=== PATIENT | female | born 1995 ===

== ENCOUNTER 2017-11-07 18:02 | Emergency (ER) | payer BC ==
[2017-11-07 18:56] VITALS: BP 109/74
--- NOTE | 2017-11-07 19:31 | UC ---
Complaint Female HPI - HPI Summary HPI Summary: c/o burning urination and frequency for the past 2 days. Denies fever, chills, or flank pain. NKDADemetria HAQD was July 2017, on nexplanon. She denies any PMH or any triggers for symptoms. She has not had a UTI for several years. - History Of Current Complaint Chief Complaint: UCGU Stated Complaint: FREQUENT URINATION Time Seen by Provider: 11/07/17 19:19 Hx Obtained From: Patient Hx Last Menstrual Period: 09/07/14 ?: No Onset/Duration: Sudden Onset, Lasting Days Timing: Intermittent, Lasting Minutes Severity Initially: Mild Severity Currently: Mild Pain Intensity: 0 Character: Burning Aggravating Factor(s): Urination Alleviating Factor(s): Nothing Associated Signs And Symptoms: Positive: Negative - Risk Factors Ectopic Risk Factor: Negative Ovarian Torsion Risk Factor: Negative - Allergies/Home Medications Allergies/Adverse Reactions: Allergies Allergy/AdvReac Type Severity Reaction Status Date / Time No Known Allergies Allergy Verified 11/07/17 18:57 Home Medications: Home Medications Etonogestrel [Nexplanon] 68 mg .SEE ORDER 11/07/17 [History] PMH/Surg Hx/FS Hx/Imm Hx Previously Healthy: Yes - Surgical History Surgical History: Yes Surgery Procedure, Year, and Place: appy - Family History Known Family History: Positive: Hypertension - Social History Alcohol Use: Weekly Substance Use Type: Marijuana Smoking Status (MU): Never Smoked Tobacco - Immunization History Most Recent Influenza Vaccination: 2013 Review of Systems Constitutional: Negative Genitourinary: Dysuria, Frequency All Other Systems Reviewed And Are Negative: Yes Physical Exam Triage Information Reviewed: Yes Appearance: Well-Appearing, No Pain Distress, Well-Nourished Vital Signs: Initial Vital Signs Temp 98.0 F 11/07/17 18:53 Pulse 62 11/07/17 18:53 Resp 16 11/07/17 18:53 BP 109/74 11/07/17 18:53 Pulse Ox 100 11/07/17 18:53 Vital Signs Reviewed: Yes Eyes: Positive: Conjunctiva Clear ENT: Positive: Hearing grossly normal Neck: Positive: Supple, Nontender Respiratory: Positive: Chest non-tender, Lungs clear, Normal breath sounds, No respiratory distress Cardiovascular: Positive: RRR, No Murmur, Pulses Normal, Brisk Capillary Refill Abdomen Description: Positive: Nontender, No Organomegaly, Soft Bowel Sounds: Positive: Present Complaint Female Dx - Course Course Of Treatment: UA positive for blood and leucocytes, patient to start on macrobid as prescribed, oral fluids, probiotics. f/u with PCP - Differential Dx/Diagnosis Provider Diagnoses: UTI Discharge - Sign-Out/Discharge Documenting (check all that apply): Patient Departure - Discharge Plan Condition: Good Disposition: HOME Prescriptions: Nitrofurantoin Monohyd/M-Cryst [Macrobid 100 mg Capsule] 100 mg PO BID 7 Days # 14 cap Patient Education Materials: Ciprofloxacin (Into the eye), Nitrofurantoin Macrocrystals (By mouth), Urinary Tract Infection in Women (ED) Referrals: Elton Delong MD [Primary Care Provider] - - Billing Disposition and Condition Condition: GOOD Disposition: Home
[2017-11-07] MEDS ORDERED: Nitrofurantoin Macrocrystals* 50 MG CAP PO ONE (19:36)
--- NOTE | 2017-11-09 18:54 | PN ---
Progress Note - Progress Note Date of Service: 11/09/17 Note: patient urine culture grew Klebsiella pneumonia 25-50,[address] Patient [address] on Macrobid. Will wait for final cultures for sensitivity.
--- NOTE | 2017-11-10 17:30 | UC ---
- Progress Note Progress Note: Urine final with klebsiella and group b strep. She was placed on Macrobid and sensitivities show "intermediate" sensitivity to macrobid. Therefore please stop macrobid and start Keflex which has good coverage for both and is sensitive according to culture. rx sent Discharge - Sign-Out/Discharge Documenting (check all that apply): Post-Discharge Follow Up All imaging exams completed and their final reports reviewed: No Studies - Discharge Plan Condition: Good Disposition: HOME Prescriptions: Cephalexin CAP* [Keflex CAP*] 500 mg PO BID #10 cap Patient Education Materials: Nitrofurantoin Macrocrystals (By mouth), Urinary Tract Infection in Women (ED) Referrals: Elton Delong MD [Primary Care Provider] - - Billing Disposition and Condition Condition: GOOD Disposition: Home
== END 2017-11-07 19:44 | disposition home or self-care (01) ==
LOC: UCEAST 18:02
DX: N39.0 Urinary tract infection, site not specified (principal)
CPT/HCPCS: 81003; 87077; 87086; 87186; 99212; A9270-GY; G0463

== ENCOUNTER 2018-06-16 15:49 | Emergency (ER) | payer BC ==
[2018-06-16 17:28] VITALS: BP 108/67
--- NOTE | 2018-06-16 18:01 | UC ---
Throat Pain/Nasal Nathaniel HPI - HPI Summary HPI Summary: 23-year-old female presents with onset of sore throat and 06/04/2018. States a few days later she started developing nasal congestion, runny nose, and occasional nonproductive cough which has progressively worsened especially over the last 3-4 days. Denies fever, chills, ear pain, dysphasia, chest pain, shortness of breath, abdominal pain, nausea, vomiting, or diarrhea. - History of Current Complaint Chief Complaint: UCRespiratory Stated Complaint: EYE COMPLAINT Time Seen by Provider: 06/16/18 17:32 Hx Obtained From: Patient Hx Last Menstrual Period: nexplanon Pain Intensity: 2 - Allergies/Home Medications Allergies/Adverse Reactions: Allergies Allergy/AdvReac Type Severity Reaction Status Date / Time No Known Allergies Allergy Verified 11/07/17 18:57 Home Medications: Home Medications Cbd Oil 1 drop PO BID 06/16/18 [History] PMH/Surg Hx/FS Hx/Imm Hx Previously Healthy: Yes - Denies significant PMH - Surgical History Surgical History: Yes Surgery Procedure, Year, and Place: app - Family History Known Family History: Positive: Hypertension - Social History Occupation: Student Lives: Dormitory/Roommates Alcohol Use: Weekly Substance Use Type: Marijuana Smoking Status (MU): Never Smoked Tobacco - Immunization History Most Recent Influenza Vaccination: 2013 Review of Systems All Other Systems Reviewed And Are Negative: Yes Constitutional: Negative: Fever, Chills Skin: Negative: Rash Eyes: Negative: Drainage, Eye Redness ENT: Positive: Sore Throat, Nasal Discharge, Sinus Congestion, Sinus Pain/ Tenderness. Negative: Ear Ache Respiratory: Positive: Cough. Negative: Shortness Of Breath Cardiovascular: Negative: Palpitations, Chest Pain Gastrointestinal: Negative: Abdominal Pain, Vomiting, Diarrhea, Nausea Genitourinary: Positive: Negative Neurological: Positive: Negative Psychological: Positive: Negative Is Patient Immunocompromised?: No Physical Exam - Summary Physical Exam Summary: GENERAL APPEARANCE: Well developed, well nourished, alert and cooperative, and appears to be in no acute distress. EYES: Conjunctiva clear. No drainage. PERRL, EOM intact. Vision is grossly intact. EARS: External auditory canals and tympanic membranes clear, hearing grossly intact. NOSE: Moderate-severe nasal congestion with mucosal erythema and edema. No nasal discharge. THROAT: Pharyngeal erythema. No tonsilar inflammation, swelling, exudate, or lesions. Uvula midline. Oral cavity normal. Teeth and gingiva in good general condition. NECK: Neck supple, non-tender without lymphadenopathy. CARDIAC: Normal S1 and S2. No S3, S4 or murmurs. Rhythm is regular. There is no peripheral edema, cyanosis or pallor. Extremities are warm and well perfused. Capillary refill is less than 2 seconds. Peripheral pulses intact. LUNGS: Clear to auscultation without rales, rhonchi, wheezing or diminished breath sounds. Loose non-productive cough. ABDOMEN: Positive bowel sounds. Soft, nondistended, nontender. No guarding or rebound. No masses or hepatosplenomegally. MUSKULOSKELETAL: ROM intact to all extremities. No joint erythema or tenderness. Normal muscular development. Normal gait. SKIN: Skin normal color, texture and turgor with no lesions or eruptions. Triage Information Reviewed: Yes Vital Signs: Initial Vital Signs Temp 99.4 F 06/16/18 17:24 Pulse 86 06/16/18 17:24 Resp 18 06/16/18 17:24 BP 108/67 06/16/18 17:24 Pulse Ox 100 06/16/18 17:24 Vital Signs Reviewed: Yes Throat Pain/Nasal Course/Dx - Course Course Of Treatment: 23-year-old female presents with onset of sore throat and 06/04/2018. States a few days later she started developing nasal congestion, runny nose, and occasional nonproductive cough which has progressively worsened especially over the last 3-4 days. Denies fever, chills, ear pain, dysphasia, chest pain, shortness of breath, abdominal pain, nausea, vomiting, or diarrhea. Afebrile. Vital signs stable. Exam is remarkable for moderate to severe nasal congestion with mucosal erythema and edema, pharyngeal erythema without tonsillar swelling or exudate, and a loose nonproductive cough. Considering the duration and progressive worsening of her symptoms I will treat her for a URI with secondary bacterial infection with amoxicillin 500 mg twice a day 10 days as well as symptomatic care. She is to return here or follow up with her primary care provider in 5 days if symptoms are not improving. Anticipatory guidance and warning symptoms reviewed with the patient. Verbalizes understanding and agrees with plan of care. - Differential Dx/Diagnosis Provider Diagnosis: URI with cough and congestion Discharge - Sign-Out/Discharge Documenting (check all that apply): Patient Departure All imaging exams completed and their final reports reviewed: No Studies - Discharge Plan Condition: Stable Disposition: HOME Prescriptions: Amoxicillin PO (*) [Amoxicillin 500 MG CAP*] 500 mg PO Q12H #20 cap Patient Education Materials: Upper Respiratory Infection (ED) Referrals: Elton Delong MD [Primary Care Provider] - 5 Days (If no improvement in symptoms.) Additional Instructions: Your history and exam are consistent with an upper respiratory infection. Considering the duration and worsening of your symptoms we will start you on an antibiotic. Take amoxicillin 500 mg twice a day for 10 days. Drink plenty of fluids. Use a saline rinse kit such as Neti Pot or NeilMed at least twice a day to help thin secretions and promote drainage of the sinuses. Use an over the counter decongestant such as Sudafed according to directions for the congestion. Take over the counter acetaminophen (Tylenol) or ibuprofen (Advil, Motrin) according to directions as needed for pain or fever. Use salt water gargles several times a day if you have a sore throat. You may also use Chloraseptic spray or Cepacol lonzenges according to directions which contain a numbing medication and can provide some temporary relief from your sore throat. Follow up with your primary care provider in 5 days if symptoms persist. Seek immediate medical attention in the emergency room if you have fever greater than 100.5 F despite taking acetaminophen or ibuprofen, have chest pain , difficulty breathing, are unable to swallow, or have any worsening of symptoms. - Billing Disposition and Condition Condition: STABLE Disposition: Home
== END 2018-06-16 18:17 | disposition home or self-care (01) ==
LOC: UCEAST 15:49
DX: J06.9 Acute upper respiratory infection, unspecified (principal); F12.90 Cannabis use, unspecified, uncomplicated
CPT/HCPCS: 99212; G0463